=== PATIENT | female | born 2005 | race Caucasian/White ===

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

== ENCOUNTER 2025-04-11 09:55 | Outpatient (CLI) | payer OTHER, SELFPAY ==
[2025-04-11 15:32] LABS: Coronavirus 19, PCR Not Detected (NotDetected); Influenza A, PCR Not Detected (NotDetected); Influenza B, PCR Not Detected (NotDetected); Respiratory Syncytial Virus Not Detected (NotDetected)
[2025-04-11 17:18] LABS: Human Rhinovirus Detected (NotDetected)
== END 2025-04-11 23:59 | disposition home or self-care (01) ==
LOC: LAB.DROPOF 04-13 09:55
PROVIDERS: PCP Student in an Organized Health Care Education/Training Program; Visit Provider Student in an Organized Health Care Education/Training Program
DX: J02.9 Acute pharyngitis, unspecified (principal)
CPT/HCPCS: 87631